=== PATIENT | male | born 1975 | race Caucasian/White ===

== ENCOUNTER 2022-10-07 19:58 | Emergency (ER) | payer OTHER ==
[~2022-10-07] VITALS: Ht 182.9 cm; Wt 72.6 kg
[~2022-10-07 19:58] MED LIST: ATOR20TA40 PO; LEVE1000 PO
[2022-10-07 20:47] VITALS: BP 104/70
--- NOTE | 2022-10-07 20:53 | NUR ---
TO BED 6 FOLLOWING TRIAGE
--- NOTE | 2022-10-07 21:00 | NUR ---
Dr. Cote examining patient.
[2022-10-07] MEDS ORDERED: KETOROLAC 30 MG/ML VIAL IM ONE (21:05)
--- NOTE | 2022-10-07 21:08 | NUR ---
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 Patient tolerated well.
[2022-10-07] MEDS ORDERED: levETIRAcetam 500 MG TAB PO ONE (21:10)
[2022-10-07 21:16] LABS: BASOPHILS # (AUTO) 0.1 K/uL (0.00-0.22); BASOPHILS % (AUTO) 0.7 % (0.0-2.0); EOSINOPHILS # (AUTO) 0.3 K/uL (0-0.4); EOSINOPHILS % (AUTO) 2.9 % (0.0-4.0); HEMATOCRIT 39.7 % (36-52); HEMOGLOBIN 13.7 g/dL (12.0-18.0); LYMPHOCYTES # (AUTO) 2.4 K/uL (2.0-11.5); LYMPHOCYTES % (AUTO) 27.2 % (20.5-51.1); MEAN CORPUSCULAR HEMOGLOBIN 31 pg (27-31); MEAN CORPUSCULAR HGB CONC 35 g/dL (33-37); MEAN CORPUSCULAR VOLUME 88.7 fL (80-94); MONOCYTES # (AUTO) 0.6 K/uL (0.8-1.0); MONOCYTES % (AUTO) 7.1 % (1.7-9.3); NEUTROPHILS # (AUTO) 5.4 K/uL (1.8-7.7); NEUTROPHILS % (AUTO) 62.1 % (42.2-75.2); PLATELET COUNT (AUTO) 260 K/uL (140-450); RED BLOOD CELL COUNT(AUTO) 4.47 MIL/uL (4.20-6.10); RED CELL DISTRIBUTION WIDTH 14.1 % (11.6-13.7); WHITE BLOOD COUNT (AUTO) 8.7 K/uL (4.8-10.8)
[2022-10-07 21:24] LABS: ANION GAP 12.3 (8-16); CARBON DIOXIDE 27.3 mmol/L (21-32); CREATININE 1.1 mg/dL (0.6-1.3); POTASSIUM 3.6 mmol/L (3.5-5.1)
[2022-10-07] MEDS ORDERED: LEVE1000 PO (22:03)
[2022-10-07] MEDS ORDERED: IBUP-2213 PO (22:03)
[2022-10-07 22:10] VITALS: BP 110/70
--- NOTE | 2022-10-07 22:10 | NUR ---
Patient discharged with v/s stable. Written and verbal after care instructions given and explained. Patient alert, oriented and verbalized understanding of instructions. Ambulatory with steady gait. All questions addressed prior to discharge. ID band removed. Patient advised to follow up with PMD. Rx of Ibuprofen and Keppra given. Patient educated on indication of medication including possible reaction and side effects. Opportunity to ask questions provided and answered.
== END 2022-10-07 22:10 | disposition home or self-care (01) ==
LOC: MED 19:58
DX: G40.909 Epilepsy, unspecified, not intractable, without status epilepticus (principal); Z86.73 Personal history of transient ischemic attack (TIA), and cerebral infarction without residual deficits; Z79.1 Long term (current) use of non-steroidal anti-inflammatories (NSAID); Z79.899 Other long term (current) drug therapy; Z88.1 Allergy status to other antibiotic agents
CPT/HCPCS: 36415; 80048; 85025; 96372; 99283; G0482; J1885

== ENCOUNTER 2023-01-07 22:54 | Emergency (ER) | payer OTHER ==
[~2023-01-07] VITALS: Ht 182.9 cm; Wt 72.6 kg
[~2023-01-07 22:54] MED LIST changes: +ACET-10509 PO; +CYCL-711 PO; +IBUP-2213 PO; +IBUP-2218 PO
[2023-01-07 23:15] VITALS: BP 102/73; PULSE 101; RESP 17; TEMP 97.9; O2SAT 99
--- NOTE | 2023-01-07 23:18 | NUR ---
TO LOBBY A/W BED AMBULATORY
[2023-01-07] MEDS ORDERED: KETOROLAC 30 MG/ML VIAL IM ONE (23:55)
[2023-01-08] MEDS ORDERED: GABA300C PO (00:23)
[2023-01-08] MEDS ORDERED: CEPH-588 PO (00:23)
[2023-01-08 00:37] VITALS: BP 102/73; PULSE 101; RESP 17; TEMP 97.9; O2SAT 99
--- NOTE | 2023-01-08 00:37 | NUR ---
Patient discharged with v/s stable. Written and verbal after care instructions given and explained. Patient alert, oriented and verbalized understanding of instructions. Ambulatory with steady gait. All questions addressed prior to discharge. ID band removed. Patient advised to follow up with PMD. Rx of KEFLEX AND NEUROTIN given. Patient educated on indication of medication including possible reaction and side effects. Opportunity to ask questions provided and answered.
== END 2023-01-08 00:37 | disposition home or self-care (01) ==
LOC: MED 22:54
DX: L03.312 Cellulitis of back [any part except buttock and flank] (principal); M54.41 Lumbago with sciatica, right side; Z88.1 Allergy status to other antibiotic agents; Z79.899 Other long term (current) drug therapy; Z86.73 Personal history of transient ischemic attack (TIA), and cerebral infarction without residual deficits
CPT/HCPCS: 96372; 99283

== ENCOUNTER 2023-01-23 00:16 | Emergency (ER) | payer OTHER ==
[~2023-01-23] VITALS: Ht 182.9 cm; Wt 72.6 kg
[~2023-01-23 00:16] MED LIST changes: +CEPH-588 PO; +GABA300C PO
[2023-01-23 00:51] VITALS: BP 124/68; PULSE 82; RESP 16; TEMP 97.7; O2SAT 100
== END 2023-01-23 03:07 | disposition left against medical advice (07) ==
LOC: MED 00:16
DX: M79.10 Myalgia, unspecified site (principal); Z53.21 Procedure and treatment not carried out due to patient leaving prior to being seen by health care provider
CPT/HCPCS: 99281

== ENCOUNTER 2023-02-05 18:51 | Emergency (ER) | payer OTHER | END 2023-02-05 19:45 | disposition left against medical advice (07) | LOC: MED 18:51 | DX: M79.606 Pain in leg, unspecified (principal); Z53.21 Procedure and treatment not carried out due to patient leaving prior to being seen by health care provider ==

== ENCOUNTER 2023-02-21 09:09 | Emergency (ER) | payer MEDICAID, OTHER ==
[~2023-02-21] VITALS: Ht 182.9 cm; Wt 63.5 kg
[2023-02-21 09:11] VITALS: BP 106/69; PULSE 92; RESP 16; TEMP 97.4; O2SAT 100
[2023-02-21] MEDS ORDERED: KETOROLAC 60 MG/2 ML VIAL IM ONE (09:20)
[2023-02-21 09:22] VITALS: O2SAT 100
[2023-02-21] MEDS ORDERED: MORPHINE SULFATE 4 MG/ML SYR IM ONE (10:10)
[2023-02-21] MEDS ORDERED: IBUP-2213 PO ×2 (10:54→11:36)
[2023-02-21] MEDS ORDERED: HYDR-5191 PO ×2 (10:54→11:36)
== END 2023-02-21 11:11 | disposition home or self-care (01) ==
LOC: MED 09:09
DX: M54.50 Low back pain, unspecified (principal); F17.200 Nicotine dependence, unspecified, uncomplicated; Z88.1 Allergy status to other antibiotic agents; Z86.73 Personal history of transient ischemic attack (TIA), and cerebral infarction without residual deficits; Z79.899 Other long term (current) drug therapy; Z98.890 Other specified postprocedural states
CPT/HCPCS: 96372; 99284; J1885; J2270

== ENCOUNTER 2023-04-29 15:37 | Emergency (ER) | payer MEDICAID, OTHER ==
[~2023-04-29] VITALS: Ht 182.9 cm; Wt 65.8 kg
[~2023-04-29 15:37] MED LIST changes: +HYDR-5191 PO
[2023-04-29 16:12] VITALS: BP 107/71; PULSE 99; RESP 18; TEMP 97.1; O2SAT 98
[2023-04-29 19:23] VITALS: BP 107/71; PULSE 99; RESP 18; TEMP 97.1; O2SAT 98
== END 2023-04-29 19:00 | disposition left against medical advice (07) ==
LOC: MED 15:37
DX: M54.41 Lumbago with sciatica, right side (principal); Z86.73 Personal history of transient ischemic attack (TIA), and cerebral infarction without residual deficits; Z86.69 Personal history of other diseases of the nervous system and sense organs; Z79.899 Other long term (current) drug therapy; Z79.1 Long term (current) use of non-steroidal anti-inflammatories (NSAID); Z79.2 Long term (current) use of antibiotics; Z88.1 Allergy status to other antibiotic agents
CPT/HCPCS: 99281

== ENCOUNTER 2023-06-02 23:25 | Emergency (ER) | payer MEDICAID, OTHER ==
[~2023-06-02] VITALS: Ht 182.9 cm; Wt 72.6 kg
[2023-06-02 23:45] VITALS: BP 121/70; PULSE 101; RESP 16; TEMP 97.8; O2SAT 98
[2023-06-03] MEDS ORDERED: NAPR-54 PO (05:42)
[2023-06-04] MEDS ORDERED: CYCL-711 PO (03:48)
[2023-06-04] MEDS ORDERED: IBUP-2213 PO (03:48)
== END 2023-06-03 07:07 | disposition home or self-care (01) ==
LOC: MED 23:25
DX: M54.50 Low back pain, unspecified (principal); Z71.6 Tobacco abuse counseling; Z86.73 Personal history of transient ischemic attack (TIA), and cerebral infarction without residual deficits; Z86.69 Personal history of other diseases of the nervous system and sense organs; Z79.899 Other long term (current) drug therapy; Z79.1 Long term (current) use of non-steroidal anti-inflammatories (NSAID); Z79.2 Long term (current) use of antibiotics; Z88.1 Allergy status to other antibiotic agents
CPT/HCPCS: 99282

== ENCOUNTER 2023-06-03 22:59 | Emergency (ER) | payer MEDICAID ==
[~2023-06-03] VITALS: Ht 182.9 cm; Wt 68.0 kg
[~2023-06-03 22:59] MED LIST changes: +NAPR-54 PO
[2023-06-03 23:40] VITALS: BP 131/78; PULSE 104; RESP 17; TEMP 97.9; O2SAT 98
[2023-06-04] MEDS ORDERED: KETOROLAC 30 MG/ML VIAL IM ONE (00:30)
[2023-06-04] MEDS ORDERED: IBUP-2213 PO (03:48)
[2023-06-04] MEDS ORDERED: CYCL-711 PO (03:48)
== END 2023-06-04 00:30 | disposition left against medical advice (07) ==
LOC: MED 22:59
DX: M54.30 Sciatica, unspecified side (principal); Z86.73 Personal history of transient ischemic attack (TIA), and cerebral infarction without residual deficits; Z79.899 Other long term (current) drug therapy
CPT/HCPCS: 99281

== ENCOUNTER 2023-06-04 01:25 | Emergency (ER) | payer MEDICAID ==
[~2023-06-04] VITALS: Ht 182.9 cm; Wt 68.0 kg
[2023-06-04 01:30] VITALS: BP 111/66; PULSE 102; RESP 16; TEMP 97.8; O2SAT 97
[2023-06-04] MEDS ORDERED: ACETAMINOPHEN EXTRA STRENGTH 500 MG TAB PO ONE (02:15)
[2023-06-04] MEDS ORDERED: KETOROLAC 30 MG/ML VIAL IM ONE (02:15)
[2023-06-04] MEDS ORDERED: IBUP-2213 PO (03:48)
[2023-06-04] MEDS ORDERED: CYCL-711 PO (03:48)
== END 2023-06-04 04:00 | disposition home or self-care (01) ==
LOC: MED 01:25
DX: M54.41 Lumbago with sciatica, right side (principal); Z86.73 Personal history of transient ischemic attack (TIA), and cerebral infarction without residual deficits; Z88.8 Allergy status to other drugs, medicaments and biological substances; Z79.899 Other long term (current) drug therapy
CPT/HCPCS: 96372; 99283; J1885

== ENCOUNTER 2023-09-01 00:44 | Emergency (ER) | payer OTHER ==
[~2023-09-01] VITALS: Ht 182.9 cm; Wt 81.6 kg
[~2023-09-01 00:44] MED LIST changes: +AMOX1TAB8 PO; -CEPH-588 PO; +SULF-59 PO
[2023-09-01 01:17] VITALS: BP 126/81; PULSE 109; RESP 18; TEMP 98.2; O2SAT 97
[2023-09-01 02:52] VITALS: O2SAT 98
[2023-09-01] MEDS: ACETAMINOPHEN 325 MG TAB PO ONE (03:48)
[2023-09-01] MEDS ORDERED: LIDOCAINE MPF 1% 0 ML ONE (05:10)
[2023-09-01] MEDS: BACITRACIN OINT 500 UNITS/GM PKT TP ONE (05:43)
[2023-09-01] MEDS ORDERED: ACET-10509 PO (05:55)
[2023-09-01 06:13] VITALS: BP 115/76; PULSE 87; RESP 14; TEMP 98.6; O2SAT 99
[2023-09-01] MEDS ORDERED: LID5T TP (12:28)
== END 2023-09-01 06:13 | disposition home or self-care (01) ==
LOC: MED 00:44
DX: S01.412A Laceration without foreign body of left cheek and temporomandibular area, initial encounter (principal); S09.90XA Unspecified injury of head, initial encounter; Z86.73 Personal history of transient ischemic attack (TIA), and cerebral infarction without residual deficits; Z79.899 Other long term (current) drug therapy; Z88.1 Allergy status to other antibiotic agents; Z59.00 Homelessness unspecified; Y08.89XA Assault by other specified means, initial encounter; Y93.89 Activity, other specified; Y92.89 Other specified places as the place of occurrence of the external cause; Y99.8 Other external cause status
CPT/HCPCS: 70450; 70486; 90471; 90715; 99285; J2001

== ENCOUNTER 2023-09-01 09:45 | Emergency (ER) | payer OTHER ==
[~2023-09-01] VITALS: Ht 182.9 cm; Wt 81.6 kg
[2023-09-01 10:07] VITALS: BP 114/68; PULSE 80; RESP 16; TEMP 97.3; O2SAT 99
[2023-09-01] MEDS ORDERED: LID5T TP (12:28)
[2023-09-01] MEDS: KETOROLAC 30 MG/ML VIAL IM ONE (12:31)
== END 2023-09-01 12:39 | disposition home or self-care (01) ==
LOC: MED 09:45
DX: S30.0XXA Contusion of lower back and pelvis, initial encounter (principal); M54.30 Sciatica, unspecified side; X58.XXXA Exposure to other specified factors, initial encounter; Y93.89 Activity, other specified; Y92.89 Other specified places as the place of occurrence of the external cause; Y99.8 Other external cause status
CPT/HCPCS: 96372; 99283; J1885

== ENCOUNTER 2023-09-03 05:40 | Emergency (ER) | payer OTHER ==
[~2023-09-03] VITALS: Ht 182.9 cm; Wt 81.6 kg
[~2023-09-03 05:40] MED LIST changes: +LID5T TP
[2023-09-03 05:50] VITALS: BP 121/80; PULSE 90; RESP 16; TEMP 97.7; O2SAT 98
[2023-09-03] MEDS: KETOROLAC 60 MG/2 ML VIAL IM ONE (06:39)
== END 2023-09-03 06:56 | disposition home or self-care (01) ==
LOC: MED 05:40
DX: G89.29 Other chronic pain (principal); M54.50 Low back pain, unspecified; Z86.73 Personal history of transient ischemic attack (TIA), and cerebral infarction without residual deficits; F17.200 Nicotine dependence, unspecified, uncomplicated; Z86.69 Personal history of other diseases of the nervous system and sense organs; Z79.899 Other long term (current) drug therapy; Z88.1 Allergy status to other antibiotic agents
CPT/HCPCS: 96372; 99283; J1885

== ENCOUNTER 2023-09-07 00:50 | Emergency (ER) | payer OTHER ==
[~2023-09-07] VITALS: Ht 182.9 cm; Wt 81.6 kg
[2023-09-07 01:00] VITALS: BP 117/78; PULSE 101; RESP 18; TEMP 98; O2SAT 98
[2023-09-07] MEDS ORDERED: LIDOCAINE MPF 1% 5 ML ONE (02:36)
[2023-09-07] MEDS ORDERED: cefTRIAXone 1,000 MG VIAL ONE (02:36)
[2023-09-07] MEDS: cefTRIAXone 1,000 MG in LIDOCAINE MPF 1% 2.1 ML IM ONE (02:43)
[2023-09-07] MEDS ORDERED: CEPH-588 PO (02:59)
[2023-09-07] MEDS ORDERED: NAPR-54 PO (02:59)
== END 2023-09-07 03:00 | disposition home or self-care (01) ==
LOC: MED 00:50
DX: L03.031 Cellulitis of right toe (principal); I63.9 Cerebral infarction, unspecified; Z88.1 Allergy status to other antibiotic agents; Z79.1 Long term (current) use of non-steroidal anti-inflammatories (NSAID); Z79.899 Other long term (current) drug therapy
CPT/HCPCS: 96372; 99283; J0696; J2001

== ENCOUNTER 2023-11-18 22:05 | Emergency (ER) | payer MEDICAID, OTHER ==
[~2023-11-18] VITALS: Ht 182.9 cm; Wt 83.9 kg
[~2023-11-18 22:05] MED LIST changes: +CEPH-588 PO; +HYDR-5071 PO; -HYDR-5191 PO; +NAPR-337 PO; -NAPR-54 PO
[2023-11-18 22:11] VITALS: BP 130/83; PULSE 115; RESP 20; TEMP 97.4; O2SAT 100
[2023-11-19] MEDS: KETOROLAC 30 MG/ML VIAL IM ONE (00:54)
[2023-11-19] MEDS: ACETAMINOPHEN EXTRA STRENGTH 500 MG TAB PO ONE (00:54)
[2023-11-19 01:35] VITALS: BP 130/83; PULSE 115; RESP 20; TEMP 97.4; O2SAT 100
== END 2023-11-19 01:35 | disposition home or self-care (01) ==
LOC: MED 22:05
DX: M25.532 Pain in left wrist (principal); Z79.1 Long term (current) use of non-steroidal anti-inflammatories (NSAID); Z79.2 Long term (current) use of antibiotics; Z79.899 Other long term (current) drug therapy; Z88.1 Allergy status to other antibiotic agents
CPT/HCPCS: 73110; 96372; 99283; J1885

== ENCOUNTER 2023-12-07 02:50 | Emergency (ER) | payer MEDICAID ==
[~2023-12-07] VITALS: Ht 182.9 cm; Wt 81.6 kg
[2023-12-07 03:04] VITALS: BP 138/82; PULSE 92; RESP 18; TEMP 98; O2SAT 98
[2023-12-07] MEDS: KETOROLAC 60 MG/2 ML VIAL IM ONE (03:54)
[2023-12-07 04:26] VITALS: BP 138/82; PULSE 92; RESP 18; TEMP 98; O2SAT 98
== END 2023-12-07 04:26 | disposition home or self-care (01) ==
LOC: MED 02:50
DX: M79.604 Pain in right leg (principal); R03.0 Elevated blood-pressure reading, without diagnosis of hypertension; F12.90 Cannabis use, unspecified, uncomplicated; F17.200 Nicotine dependence, unspecified, uncomplicated; Z79.1 Long term (current) use of non-steroidal anti-inflammatories (NSAID); Z79.2 Long term (current) use of antibiotics; Z79.899 Other long term (current) drug therapy; Z88.1 Allergy status to other antibiotic agents
CPT/HCPCS: 96372; 99283; J1885

== ENCOUNTER 2023-12-13 08:46 | Emergency (ER) | payer MEDICAID, OTHER ==
[~2023-12-13] VITALS: Ht 182.9 cm; Wt 81.6 kg
[2023-12-13 08:52] VITALS: BP 119/88; PULSE 78; RESP 18; TEMP 97.3; O2SAT 99
== END 2023-12-13 09:04 ==
LOC: MED 08:46
DX: H10.89 Other conjunctivitis (principal); T75.89XA Other specified effects of external causes, initial encounter; Z86.73 Personal history of transient ischemic attack (TIA), and cerebral infarction without residual deficits; Z86.69 Personal history of other diseases of the nervous system and sense organs; Z79.1 Long term (current) use of non-steroidal anti-inflammatories (NSAID); Z79.2 Long term (current) use of antibiotics; Z79.899 Other long term (current) drug therapy; Z88.1 Allergy status to other antibiotic agents; Y08.89XA Assault by other specified means, initial encounter; Y93.9 Activity, unspecified; Y92.89 Other specified places as the place of occurrence of the external cause; Y99.8 Other external cause status
CPT/HCPCS: 99283

== ENCOUNTER 2023-12-25 05:33 | Emergency (ER) | payer OTHER ==
[~2023-12-25] VITALS: Ht 182.9 cm; Wt 81.6 kg
[2023-12-25 05:35] VITALS: BP 137/85; PULSE 90; RESP 16; TEMP 97.8; O2SAT 98
[2023-12-25] MEDS: KETOROLAC 60 MG/2 ML VIAL IM ONE (06:45)
[2023-12-25] MEDS ORDERED: IBUP-2213 PO (18:26)
[2023-12-25] MEDS ORDERED: ACET-10509 PO (18:26)
== END 2023-12-25 07:10 | disposition home or self-care (01) ==
LOC: MED 05:33
DX: M79.604 Pain in right leg (principal); Z86.73 Personal history of transient ischemic attack (TIA), and cerebral infarction without residual deficits; Z86.69 Personal history of other diseases of the nervous system and sense organs; Z79.899 Other long term (current) drug therapy; Z88.1 Allergy status to other antibiotic agents
CPT/HCPCS: 99282

== ENCOUNTER 2023-12-25 17:06 | Emergency (ER) | payer OTHER ==
[~2023-12-25] VITALS: Ht 182.9 cm; Wt 81.6 kg
[2023-12-25 17:22] VITALS: BP 108/78; PULSE 99; RESP 16; TEMP 97.7; O2SAT 97
[2023-12-25] MEDS: ACETAMINOPHEN EXTRA STRENGTH 500 MG TAB PO ONE (18:10)
[2023-12-25] MEDS: KETOROLAC 30 MG/ML VIAL IM ONE (18:11)
[2023-12-25] MEDS ORDERED: ACET-10509 PO (18:26)
[2023-12-25] MEDS ORDERED: IBUP-2213 PO (18:26)
== END 2023-12-25 18:55 | disposition home or self-care (01) ==
LOC: MED 17:06
DX: G89.29 Other chronic pain (principal); M54.50 Low back pain, unspecified; F12.90 Cannabis use, unspecified, uncomplicated; F17.210 Nicotine dependence, cigarettes, uncomplicated; Z86.73 Personal history of transient ischemic attack (TIA), and cerebral infarction without residual deficits; Z86.69 Personal history of other diseases of the nervous system and sense organs; Z79.899 Other long term (current) drug therapy; Z88.1 Allergy status to other antibiotic agents
CPT/HCPCS: 96372; 99283; J1885

== ENCOUNTER 2024-01-02 13:56 | Emergency (ER) | payer OTHER ==
[~2024-01-02] VITALS: Ht 182.9 cm; Wt 73.7 kg
[2024-01-02 14:05] VITALS: BP 104/74; PULSE 96; RESP 15; TEMP 97.8; O2SAT 96
[2024-01-02 14:48] VITALS: BP 102/71; PULSE 92; RESP 15; TEMP 97.8
[2024-01-02 15:01] VITALS: O2SAT 96
[2024-01-02] MEDS: levETIRAcetam 500 MG TAB PO ONE (15:04)
[2024-01-02] MEDS ORDERED: LEVE1000 PO (15:08)
== END 2024-01-02 15:56 | disposition home or self-care (01) ==
LOC: MED 13:56
DX: T73.0XXA Starvation, initial encounter (principal); G40.909 Epilepsy, unspecified, not intractable, without status epilepticus; R53.1 Weakness; Z59.00 Homelessness unspecified; X58.XXXA Exposure to other specified factors, initial encounter; Z86.73 Personal history of transient ischemic attack (TIA), and cerebral infarction without residual deficits; Z79.899 Other long term (current) drug therapy; Z88.1 Allergy status to other antibiotic agents
CPT/HCPCS: 99283

== ENCOUNTER 2024-01-04 01:09 | Emergency (ER) | payer OTHER ==
[~2024-01-04] VITALS: Ht 182.9 cm; Wt 81.6 kg
[2024-01-04 01:15] VITALS: BP 121/82; PULSE 100; RESP 18; TEMP 98; O2SAT 98
[2024-01-04] MEDS: LIDOCAINE 5% 1 EA PATCH TP ONE (04:19)
[2024-01-04] MEDS: KETOROLAC 30 MG/ML VIAL IM ONE (04:19)
[2024-01-04] MEDS: CYCLOBENZAPRINE 10 MG TAB PO ONE (04:19)
[2024-01-04] MEDS ORDERED: CYCL-711 PO (04:28)
[2024-01-05] MEDS ORDERED: LID5T TP (19:56)
[2024-01-05] MEDS ORDERED: METH4TAB1 PO (19:56)
== END 2024-01-04 04:33 | disposition home or self-care (01) ==
LOC: MED 01:09
DX: M54.41 Lumbago with sciatica, right side (principal); G89.29 Other chronic pain; Z86.73 Personal history of transient ischemic attack (TIA), and cerebral infarction without residual deficits; Z86.69 Personal history of other diseases of the nervous system and sense organs; Z79.1 Long term (current) use of non-steroidal anti-inflammatories (NSAID); Z79.2 Long term (current) use of antibiotics; Z79.899 Other long term (current) drug therapy; Z88.1 Allergy status to other antibiotic agents
CPT/HCPCS: 96372; 99283; J1885

== ENCOUNTER 2024-01-05 18:27 | Emergency (ER) | payer OTHER ==
[~2024-01-05] VITALS: Ht 182.9 cm; Wt 79.8 kg
[2024-01-05 18:30] VITALS: BP 124/89; PULSE 109; RESP 18; TEMP 98.6; O2SAT 96
[2024-01-05] MEDS ORDERED: METH4TAB1 PO (19:56)
[2024-01-05] MEDS ORDERED: LID5T TP (19:56)
[2024-01-05] MEDS: KETOROLAC 30 MG/ML VIAL IM ONE (20:21)
[2024-01-05] MEDS: LIDOCAINE 5% 1 EA PATCH TP ONE (20:21)
== END 2024-01-05 20:22 | disposition home or self-care (01) ==
LOC: MED 18:27
DX: G89.29 Other chronic pain (principal); M54.9 Dorsalgia, unspecified; R03.0 Elevated blood-pressure reading, without diagnosis of hypertension; Z86.73 Personal history of transient ischemic attack (TIA), and cerebral infarction without residual deficits; Z86.69 Personal history of other diseases of the nervous system and sense organs; Z79.899 Other long term (current) drug therapy; Z88.1 Allergy status to other antibiotic agents
CPT/HCPCS: 96372; 99283; J1885

== ENCOUNTER 2024-03-29 14:43 | Emergency (ER) | payer OTHER ==
[~2024-03-29] VITALS: Ht 172.7 cm; Wt 76.7 kg
[~2024-03-29 14:43] MED LIST changes: -ACET-10509 PO; +ACET500T99 PO; +METH4TAB1 PO
[2024-03-29 14:49] VITALS: BP 133/82; RESP 18; TEMP 98; O2SAT 98
[2024-03-29 15:20] VITALS: O2SAT 98
[2024-03-29] MEDS ORDERED: ACET-8905 PO (15:21)
[2024-03-29] MEDS: KETOROLAC 60 MG/2 ML VIAL IM ONE (15:59)
[2024-03-29 16:39] VITALS: TEMP 98.1
== END 2024-03-29 16:39 | disposition home or self-care (01) ==
LOC: MED 14:43
DX: S13.4XXA Sprain of ligaments of cervical spine, initial encounter (principal); S50.02XA Contusion of left elbow, initial encounter; R03.0 Elevated blood-pressure reading, without diagnosis of hypertension; F17.210 Nicotine dependence, cigarettes, uncomplicated; Z86.73 Personal history of transient ischemic attack (TIA), and cerebral infarction without residual deficits; Z86.69 Personal history of other diseases of the nervous system and sense organs; Z98.890 Other specified postprocedural states; Z79.899 Other long term (current) drug therapy; Z88.1 Allergy status to other antibiotic agents; V23.49XA Other motorcycle driver injured in collision with car, pick-up truck or van in traffic accident, initial encounter; Y93.89 Activity, other specified; Y92.410 Unspecified street and highway as the place of occurrence of the external cause; Y99.8 Other external cause status
CPT/HCPCS: 72040; 73080; 96372; 99284; J1885; Q0092